=== PATIENT | male | born 1950 | race Caucasian/White ===

== ENCOUNTER 2021-08-20 09:47 | Day surgery (SDC) | payer BC, MEDICARE ==
[2021-08-14 16:07] VITALS: BMI 32.3
[~2021-08-20 09:47] MED LIST: LACTATED RINGERS 1,000 ML IV SCH
[2021-08-20 10:13] VITALS: TEMP 97
[2021-08-20] MEDS ORDERED: ROPIVACAINE 5 MG/ML 20 ML AMPULE ONE (11:00)
[2021-08-20] MEDS ORDERED: methylPREDNISolone ACETATE 40 MG/ML 1 ML VIAL ONE (11:00)
[2021-08-20] MEDS ORDERED: MIDAZOLAM 2 MG/2 ML VIAL ONE (11:00)
[2021-08-20] MEDS ORDERED: LIDOCAINE 2% INJ 20 MG/ML (2 ML VIAL) ONE (11:00)
[2021-08-20] MEDS ORDERED: fentaNYL (PF) 50 MCG/ML 2 ML AMP ONE (11:00)
--- NOTE | 2021-08-20 11:14 | P.PCN ---
Date of Procedure: 08/20/21 Description of Procedure: PREOPERATIVE DIAGNOSIS: Sacroiliac joint dysfunction POSTOPERATIVE DIAGNOSIS: Sacroiliac joint dysfunction. PROCEDURES: 1. Left-sided Sacroiliac joint steroid injection #1 out of 2 2. Sacroiliac joint arthrogram. SURGEON: Sharlene Kruger ANESTHESIA: Local and IV sedation : Versed 2 mg, and fentanyl 100 g. EBL: None. Specimen removed: None Fluoroscopic image: saved to electronic medical records. PROCEDURE INDICATIONS: This patient with a history of chronic low back pain, and sacroiliac joint dysfunction. Patient tried conservative therapy. Came here for intervention management. PROCEDURE DESCRIPTION: The patient was seen and identified in the preoperative area. Risks, benefits, complications, and alternatives were discussed with the patient. The patient agreed to proceed with the procedure and signed the consent. IV was started, and vital signs were stable. Patient was taken to the OR and time out was completed. The patient was placed in the prone position on procedure table and a pillow was placed under the abdomen to reduce lumbar lordosis. The lumbosacral area was prepped and draped in the usual sterile fashion. Critical pause was taken. Vital signs were closely monitored during the procedure. For the left side, the fluoroscopic camera was placed in right oblique view and left SI joint lower pole was identified. Skin entry point was infiltrated with 1% lidocaine and 22-gauge 3.5 inch spinal needle was introduced into the inferior one-third of SI joint and after penetrating into the joint arthrogram was done. IV contrast was not injected secondary to iodine ALLERGY.. Then again after negative aspiration of spinal fluid and blood and negative for neurological symptoms, 3 mL of a solution containing total 2.5 mL of 0.5% preservative-free ropivacaine mixed with 40 mg of Depo-Medrol was injected. Needle was withdrawn intact. Skin was cleansed, and bandages were applied. COMPLICATIONS: None. DISPOSITION / PLANS: The patient was placed in a supine position and transferred to the recovery area in a stable condition for observation and was discharged from the recovery room after meeting discharge criteria. Home discharge instructions given to the patient by the staff. The patient was reexamined prior to discharge. The patient will schedule for follow-up visit with the pain clinic in 4 weeks duration.
[2021-08-20] MEDS ORDERED: IV FLUID CONTINUATION 700 ML IV ONE (11:19)
[2021-08-20] MEDS ORDERED: LACTATED RINGERS 700 ML IV ONE (11:19)
[2021-08-20 11:21] VITALS: RESP 18
[2021-08-20 11:36] VITALS: BP 156/85; PULSE 70
--- NOTE | 2021-08-20 12:57 | FL ---
Fluoroscopy HISTORY: Pain 3 seconds fluoroscopy time supplied to the referring clinician. 1 intraoperative C-arm images docume nt the procedure. See dictated report from anesthesia.
== END 2021-08-20 12:04 | disposition home or self-care (01) ==
LOC: ORPAIN 09:47
DX: M53.3 Sacrococcygeal disorders, not elsewhere classified (principal); G89.29 Other chronic pain; M54.50 Low back pain, unspecified; I42.9 Cardiomyopathy, unspecified; I10 Essential (primary) hypertension; E78.00 Pure hypercholesterolemia, unspecified; Z95.810 Presence of automatic (implantable) cardiac defibrillator; Z96.653 Presence of artificial knee joint, bilateral; Z88.3 Allergy status to other anti-infective agents; Z88.1 Allergy status to other antibiotic agents
CPT/HCPCS: 27096; J2250; J1030; J2001 ×2; J3010; J2795; 99152

== ENCOUNTER → 2021-09-17 | Outpatient (CLI) | payer BC, MEDICARE ==
[2021-09-17 09:59] VITALS: BP 124/73; PULSE 70; RESP 16
--- NOTE | 2021-09-18 13:28 | P.PN ---
Subjective Progress Note Date: 09/17/21 This 71 years old female with a chronic history of severe low back pain, with radiation to the buttock area patient had lumbar decompression and fusion surgery several years ago, and continue to have severe pain, pain is constant interfere with any activity, interfer with the quality of life. Pain is prov oked with weightbearing activities for periods of 5 minutes or more. Pain is relieved with medications (ibuprofen, [place] rarely), injections in the past, repositioning, physical therapy for 6 weeks in 2019, chiropractic treatment in the past, or cryotherapy from , home stretching regimen and laying supine Physical Examinations : -Constitutiona : Cooperative , not in acute distress . -HEENT : nech : supple , no Lymphadenopathy , normal thyroid size . : eyes : no ptosis , no icterus, no photophobia . - neurologic : Cranial nerve II to XII intact , no focal neurological deffecit . -psychatric : alert , oriented X 3 , appropriate affect , intact judgment and insight . -Lymphatic : no Lymphadenopathy . - musculoskeltal : Lumber spine moter stegnth lower extremities ,thigh and legs 5/5 Right side , 5/5 Left side deep tendon reflexes : normal Knee Jerk , normal ankle Jerk lumber facet Loading Test =positive Right , positive Left Range of motion of the lumbar spine Flexion 30 degrees, extension 10 degrees strait leg raising test = positive at 30 degree Fabere test= positive Right , and positive LT . Sever tenderness over the Sacroiliac joint on the Left side. Gaenslen test= positive left . Seated flexion test= positive Left . Distraction test= positive left side Sacroiliac compression test= positive left Imaging: CT Myelogram of the Lumbar spine from [facility] requested. Assessment/ Plan : failed Back surgery syndrome and lumbar area. Left sacroiliitis. she could benefit from left sacroiliac joint steroid injection Objective - Vital Signs Vital signs: Vital Signs Temp Pulse 70 09/17/21 09:54 Resp 16 09/17/21 09:54 BP 124/73 09/17/21 09:54 Pulse Ox 98 09/17/21 09:54 FiO2 Intake & Output 09/16/21 09/17/21 09/17/21 18:59 06:59 18:59 Weight 90.718 kg
== END ==
LOC: PNWHC3 09:33
PROVIDERS: ATTEND Specialist
DX: M51.36 Other intervertebral disc degeneration, lumbar region (principal); M47.816 Spondylosis without myelopathy or radiculopathy, lumbar region; M79.18 Myalgia, other site; G89.29 Other chronic pain; Z91.041 Radiographic dye allergy status; Z88.1 Allergy status to other antibiotic agents; Z88.8 Allergy status to other drugs, medicaments and biological substances
CPT/HCPCS: 99211

== ENCOUNTER → 2021-11-17 | Day surgery (SDC) | payer BC, MEDICARE ==
[~2021-11-17] MED LIST changes: +IV FLUID CONTINUATION 1,000 ML IV ONE; +MIDAZOLAM 2 MG/2 ML VIAL ONE; +ROPIVACAINE 5 MG/ML 20 ML AMPULE ONE; +fentaNYL (PF) 50 MCG/ML 2 ML AMP ONE; +methylPREDNISolone ACETATE 40 MG/ML 1 ML VIAL ONE
[2021-11-17 09:52] VITALS: TEMP 96
--- NOTE | 2021-11-17 10:12 | P.PCN ---
Date of Procedure: 11/17/21 Procedure(s) Performed: Procedure= Left sacroiliac joints steroid injection under fluoroscopy guidance (fluoroscopy image stored on file in the radiology Department ) Preoperative diagnosis= 1-left sacroiliitis 2-left sacroiliac joint dysfunction Postoperative diagnosis=Same as preop Diagnosis . Complication = none Condition= stable Anesthesia= moderate sedation with intravenous Versed 2 mg , and fentanyl 100 micrograms . Sedation start time: 1002 Sedation end time : 1008 Indication for the procedure= patient complaining of low back pain , examination was positive for severe tenderness over the left sacroiliac joints , and patient diagnosed with sacroiliitis, for this reason she was good candidate for sacroiliac joint steroid injection. Description of the procedure= procedure risk and benefits discussed with the patient, including but not limited, risk of infection and bleeding, and ALLERGIC reaction to the medication and not complete pain relief and patient agreed with the preceding patient taken to the operating room, placed in prone position or standard monitors applied to the patient then after induction of anesthesia back prepped with chlorhexidine 3 times , Then the left sacroiliac joint steroid injection done under strict sterile technique local infiltration of the skin and subcu interstitial at the location of the left sacroiliac joint then a 22-gauge [place]ke Needle advanced slowly under fluoroscopy time placed in the left sacroiliac joint, needle placement confirmed with AP and oblique and lateral view then after appropriate needle placement confirmed and after negative aspiration 0.5% Ropivacaine 4 mL and 40 mg of Depo-Medrol injected in the left sacroiliac joint after negative aspiration patient tolerated the procedure well that any complications and she will follow up in clinic 3 weeks
--- NOTE | 2021-11-17 10:19 | FL ---
EXAMINATION TYPE: FL guided pain mgmt statistic DATE OF EXAM: 11/17/2021 HISTORY: Fluoroscopy time 3 seconds of fluoroscopy provided. IMPRESSION: 1. Fluoroscopy time.
[2021-11-17 10:36] VITALS: BP 165/87; PULSE 68; RESP 16
== END ==
LOC: ORPAIN 09:32
PROVIDERS: ATTEND Specialist
DX: M46.1 Sacroiliitis, not elsewhere classified (principal); Z88.9 Allergy status to unspecified drugs, medicaments and biological substances
CPT/HCPCS: 27096; J2250; J1030; J3010; J2795

== ENCOUNTER → 2021-12-07 | Outpatient (CLI) | payer BC, MEDICARE ==
[2021-12-07 10:13] VITALS: BP 170/87; PULSE 70; RESP 18; TEMP 97.6
--- NOTE | 2021-12-07 14:52 | P.PAINPG ---
PQRS Measure Charge Sheet Comment: A 71 yr old female with a history of severe and chronic low back pain secondary to lumbar degenerative disc diseases and lumbar spondylosis with facet arthropathy without myelopathy presents today for evaluation s/p L SI injection. Pt states she experienced 25% pain relief x 3 wks s/p procedure. Pain level is currently at 6/10 in intensity, intermittent, localized in the L lower lumbar spine, stabbing in character w shooting towards the L glute. Pain is provoked by standing for operiods of 20 min or more where pain goes in central lumbar spine. Pain is alleviated with PT x 4 wks in 2019, medications, topicals, heat, ice, repositioning and rest. Interventional pain procedures completed include L SI injection Patient is currently on Celebrex Patient denies any side effects of the medication(s), denies excessive drowsiness or sleepiness, denies suicidal ideation and reports that the current pain medication is helping to control the pain and improve activities of daily living. Patient denies any motor or sensory deficits. Patient denies any fever or night sweats, denies any change in the bowel movements or urination. Physical Examination: -Constitutional: Cooperative. Not in acute distress . - Neurologic: Cranial nerve II to XII intact. No focal neurological deficits. - Psychatric: Alert & oriented x 3. Matching mood & appropriate affect. Judgment and insight intact. - Musculoskeletal: Cervical spine: Muscle bulk/ tone/ strength in the bilateral upper extremities normal Vertebral body tenderness to palpation over Spurling test positive Distraction test positive Facet loading test positive Thoracic spine Muscle bulk / tone/ strength in the bilateral paraspinal muscles normal Vertebral body tender to palpation over Facet loading test positive Lumbar spine: Motor bulk/ tone/ strength lower extremities , thigh and legs : 5/5 Deep tendon reflexes : Normal Knee Jerk. Normal Ankle Jerk . Vertebral body tenderness to palpation over Lumbar Facet Loading Test positive Straight Leg Raise: positive at 30 degrees right side/ left side Gaenslen's Test positive Sacral spine : Severe tenderness over the Sacroiliac joint: right side / left side Range of motion: Flexion of the lumbar spine <60 degrees Range of motion: Extension of the lumbar spine <20 degrees Gaenslen's Test positive Jv's Test positive Max test: positive right side / left side Thigh Thrust Test L Sacral Thrust Test Assessment and plan: Chronic low back pain secondary to lumbar degenerative disc disease , lumbar spondylosis with facet arthropathy without myelopathy Recommendation of Celebrex 200mg QD #30 w 1 RF. Use, side effects and adverse reactions, discussed and pt verbalized understanding. All patient questions answered I have spent less than 30 minutes on patient care today. Dr Luz was available by phone for the evaluation of this patient. The time was used to review the medical records including relevant urine studies and Prescription history (MAPs), review of the available imaging, evaluation and examination of the patient, coordination of care with the medical staff and if applicable referring physicians, as well as creation of the medical record PQRS Narrative: Hx Alcohol Use (MH) No Home Medications: Ambulatory Orders Acetaminophen [Tylenol Extra Strength] 1,000 mg PO DIRECTED PRN 08/14/21 Cholecalciferol [Vitamin D3 (25 Mcg = 1000 Iu)] 50 mcg PO DAILY 08/14/21 Citalopram Hydrobromide [Citalopram HBr] 20 mg PO DAILY 08/14/21 Clopidogrel [Plavix] 75 mg PO DAILY 08/14/21 Cyanocobalamin (Vitamin B-12) [Vitamin B-12] 1,000 mcg PO DAILY 08/14/21 Famotidine [Pepcid] 20 mg PO HS 08/14/21 Ferrous Sulfate [Feosol] 325 mg PO DAILY 08/14/21 Fish Oil/Dha/Epa [Fish Oil 1,200 mg Fish Oil] 1 each PO DAILY 08/14/21 Fluticasone Nasal [place] [Flonase Nasal [place]] 1 spray EA NOSTRIL DAILY PRN 08/14/21 Metoprolol Succinate (ER) [Toprol Xl] 50 mg PO DAILY 08/14/21 Metoprolol Succinate (ER) [Toprol Xl] 100 mg PO DAILY 08/14/21 Montelukast Sodium [Singulair] 10 mg PO DAILY 08/14/21 Omeprazole 20 mg PO DAILY 08/14/21 Oxybutynin Chloride [Ditropan XL] 10 mg PO HS 08/14/21 Rosuvastatin [Crestor] 20 mg PO HS 08/14/21 Valsartan 80 mg PO HS 08/14/21 Valsartan 160 mg PO HS 08/14/21 Celecoxib [CeleBREX] 200 mg PO DAILY 30 Days #30 cap 12/07/21 Controlled Substance Measures - Controlled Substance Measures Is patient prescribed a controlled substance at discharge?: No
== END ==
LOC: PNWHC3 09:06
PROVIDERS: ATTEND Specialist
DX: M47.816 Spondylosis without myelopathy or radiculopathy, lumbar region (principal); M51.36 Other intervertebral disc degeneration, lumbar region; G89.29 Other chronic pain; Z91.041 Radiographic dye allergy status; Z88.1 Allergy status to other antibiotic agents
CPT/HCPCS: 99211

== ENCOUNTER → 2022-02-11 | Outpatient (CLI) | payer BC, MEDICARE ==
[2022-02-11 12:11] VITALS: BP 156/73; PULSE 90; RESP 16; TEMP 97.9
--- NOTE | 2022-02-11 14:52 | P.PAINPG ---
Subjective Progress Note Date: 02/11/22 Principal diagnosis: Lumbar back pain, and leg pain Ms. Joy is a 71-year-old pleasant female came to the [facility] pain clinic for follow-up visit. Patient has ongoing pain for many years. She tried multiple intervention procedures with minimal pain relief. Patient describes pain is aching, throbbing, constant type of pain. Pain is radiating to lower extremity sometimes causing numbness and tingling sensation.. Patient rated pain levels are 8 out of 10 in severity. With the help of medications pain levels are 6-10 out of 10 in severity. Activities making pain worse. Medications, resting helping in relieving patient's pain. Patient pain some days better than others. Overall activities decreased secondary to pain. Because of the pain sometimes patient is feeling lack of sleep, interest, and energy. Denied any side effects with the medications. Denied any bowel or bladder problems at this time. Patient is not using any aids for walking support. Patient denies any suicidal or homicidal ideations intent or plan. P atient denies any auditory or visual hallucinations. Patient denied any red flag symptoms related to pain. Patient had [employer] pacemaker (2007). Objective - Vital Signs Vital signs: Intake & Output 02/10/22 02/11/22 02/11/22 18:59 06:59 18:59 Weight 94.347 kg - Exam General: Well-developed, well-nourished, no acute distress HEENT: Normocephalic, and atraumatic Neck: Supple, no neck swelling Psychiatric: Appropriate mood, and affect [employer] ASSISTANT: No focal neurological deficits Musculoskeletal: Upper extremity: Normal strength, and range of motion. Sensation grossly intact Lower extremity: Normal strength, and decreased range of motion secondary to pain. Lumbar spine: Healed lumbar scar positive. Paravertebral tenderness: positive Lumbar facet load test : positive Sacroiliac joint tenderness: Positive Thigh thrust test: Positive SI joint compression test: Positive Fabere test: Positive [place] leg raising test positive. Assessment and Plan Assessment: Lumbar postlaminectomy syndrome Lumbar spondylosis without myelopathy Lumbar radiculopathy Sacroiliac joint dysfunction Myofascial pain syndrome, and chronic pain syndrome [employer] / [employer] pacemaker Plan: #1 Diagnoses, prognosis, and multiple treatment options including but not limited to physical therapy, interventional therapy, adjunct medication therapy, narcotic medication, and surgical options were discussed with the patient. And all questions were answered to the patient's satisfaction. #2 treatment plan agreement : Patient was thoroughly discussed regarding the treatment options, alternatives, and importance of exercises as tolerated. Patient clearly understood. #3 Patient was counseled on importance of regular exercise. Including [place] chi, aerobic exercises as tolerated. Which helps for chronic pain, and overall well- being. #4 investigations: MAPS- reviewed , urine drug test- none #5 diagnostic tests: None #6 consultation : Psychologist evaluation- if she planned to go for spinal cord stimulator trial in future, Thoracic spine MRI without contrast before going for spinal cord stem later to rule out stenosis. # 7 interventional procedures: Discussed with patient regarding spinal cord stimulation trial option . Procedure, complications, alternatives discussed with the patient. #8 medications #1 Celebrex 200 mg by mouth daily as needed, dispensed 30 with 5 refills #2 discontinue Motrin Medication side effects, complications, long-term consequences discussed with the patient. Patient recommended to contact the pain clinic if noticed any issues with given medications. #9 morphine milligrams equivalents dose ( MME) per day: 0 from the pain clinic #10 disposition: scheduled to follow up with pain clinic in 12 weeks duration. Time with Patient: Less than 30 PQRS Measure Charge Sheet Measure #130: Documentation of Current Meds in Medical Chart: Patient's medications documented in chart Measure #226: Tobacco Use: Screen & Cessation Intervention: Pt not a tobacco user Measure #111: Pneumonia Vaccination: Pneumococcal vaccine administered or previously received Measure #47: Advance Care Plan: Advance care planning discussed & documented, plan or surrogate given Measure #412: Opioid Treatment Agreement: No documentation of signed opioid treatment agreement Measure #408: Opioid Therapy Follow-up Evaluation: Patient had NO f/u eval minimum every 3 months during opioid therapy Measure #317: Preventitive Care & Scrn High Bld Press & F/U: Pre-hypertensive or hypertensive BP documented, pt will f/u with PCP Measure #128: Body Mass Index (BMI) Screening & Follow-up: BMI documented ABOVE normal parameters - f/u documented Measure #131: Pain Assessment & Follow-up: Pain positive & plan documented Measure #431: Unhealthy Alcohol Use Preventative Care & Scrn: Patient not identified as an unhealthy alcohol user - Pain Location Left Lower Back Non-Pharmacological Interventions: Heat, Ice, Inactivity, Physical Therapy, Relaxation Technique Pharmacological Interventions: Block, Epidural, PRN Medication, Topical Medication PQRS Narrative: Hx Alcohol Use (MH) No Home Medications: Ambulatory Orders Acetaminophen [Tylenol Extra Strength] 1,000 mg PO DIRECTED PRN 08/14/21 Cholecalciferol [Vitamin D3 (25 Mcg = 1000 Iu)] 50 mcg PO DAILY 08/14/21 Citalopram Hydrobromide [Citalopram HBr] 20 mg PO DAILY 08/14/21 Clopidogrel [Plavix] 75 mg PO DAILY 08/14/21 Cyanocobalamin (Vitamin B-12) [Vitamin B-12] 1,000 mcg PO DAILY 08/14/21 Famotidine [Pepcid] 20 mg PO HS 08/14/21 Ferrous Sulfate [Feosol] 325 mg PO DAILY 08/14/21 Fish Oil/Dha/Epa [Fish Oil 1,200 mg Fish Oil] 1 each PO DAILY 08/14/21 Fluticasone Nasal [place] [Flonase Nasal [place]] 1 spray EA NOSTRIL DAILY PRN 08/14/21 Metoprolol Succinate (ER) [Toprol Xl] 50 mg PO DAILY 08/14/21 Metoprolol Succinate (ER) [Toprol Xl] 100 mg PO DAILY 08/14/21 Montelukast Sodium [Singulair] 10 mg PO DAILY 08/14/21 Omeprazole 20 mg PO DAILY 08/14/21 Oxybutynin Chloride [Ditropan XL] 10 mg PO HS 08/14/21 Rosuvastatin [Crestor] 20 mg PO HS 08/14/21 Valsartan 80 mg PO HS 08/14/21 Valsartan 160 mg PO HS 08/14/21 Celecoxib [CeleBREX] 200 mg PO DAILY 30 Days #30 cap 12/07/21 Controlled Substance Measures - Controlled Substance Measures Is patient prescribed a controlled substance at discharge?: No
== END ==
LOC: PNWHC3 10:00
DX: M47.26 Other spondylosis with radiculopathy, lumbar region (principal); M96.1 Postlaminectomy syndrome, not elsewhere classified; M46.1 Sacroiliitis, not elsewhere classified; M79.10 Myalgia, unspecified site; G89.4 Chronic pain syndrome; Z95.810 Presence of automatic (implantable) cardiac defibrillator; Z91.041 Radiographic dye allergy status; Z88.1 Allergy status to other antibiotic agents
CPT/HCPCS: 99211

== ENCOUNTER → 2022-05-06 | Outpatient (CLI) | payer BC, MEDICARE ==
[2022-05-06 12:03] VITALS: BP 166/94; PULSE 70; RESP 18; TEMP 98.1
--- NOTE | 2022-05-06 13:03 | P.PAINPG ---
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 Pain level is provoked at 5 /10 in intensity, constant, localized in the lumbar spine, dull in character w shooting towards the RLE. Pain is provoked by sitting for periods of 15 min or more. Pain is alleviated with medications, PT integrated w massage x 4 wks in Apr 2022, home stretching regimen, heat, ice, repositioning and rest. Discussed risks, benefits of SCS placement and trial w pt but is disinterested at this time. Interventional pain procedures completed include L SI Patient is currently on Celebrex 200mg, Jeff Patient denies any side effects of the medication(s), denies excessive drowsiness or sleepiness, denies suicidal ideation and reports that the current pain medication is helping to control the pain and improve activities of daily living. Patient denies any motor or sensory deficits. Patient denies any fever or night sweats, denies any change in the bowel movements or urination. Physical Examination: -Constitutional: Cooperative. Not in acute distress . - Neurologic: Cranial nerve II to XII intact. No focal neurological deficits. - Psychatric: Alert & oriented x 3. Matching mood & appropriate affect. Judgment and insight intact. - Musculoskeletal: Cervical spine: Muscle bulk/ tone/ strength in the bilateral upper extremities normal Vertebral body tenderness to palpation over Spurling test positive Distraction test positive Facet loading test positive TTP Thoracic spine Muscle bulk / tone/ strength in the bilateral paraspinal muscles normal Vertebral body tender to palpation over Facet loading test positive TTP Lumbar spine: Motor bulk/ tone/ strength lower extremities , thigh and legs : 5/5 Deep tendon reflexes : Normal Knee Jerk. Normal Ankle Jerk . Vertebral body tenderness to palpation over Lumbar Facet Loading Test positive Straight Leg Raise: positive at 30 degrees right side/ left side Gaenslen's Test positive Sacral spine : Severe tenderness over the Sacroiliac joint: right side / left side Range of motion: Flexion of the lumbar spine <60 degrees Range of motion: Extension of the lumbar spine <20 degrees Gaenslen's Test positive right side / left side Max test: positive right side / left side Thigh Thrust Test positive right side / left side Sacral Thrust Test positive right side / left side Assessment and plan: Chronic LBP secondary to post laminectomy syndrome All patient questions answered MAPS reviewed and it was appropriate. Prescription refill for Celebrex 200mg w 1 RF I have spent less than 30 minutes on patient care today. Dr Luz was available by phone for the evaluation of this patient. The time was used to review the medical records including relevant urine studies and Prescription history (MAPs), review of the available imaging, evaluation and examination of the patient, coordination of care with the medical staff and if applicable referring physicians, as well as creation of the medical record PQRS Narrative: Hx Alcohol Use (MH) No Home Medications: Ambulatory Orders Acetaminophen [Tylenol Extra Strength] 1,000 mg PO DIRECTED PRN 08/14/21 Cholecalciferol [Vitamin D3 (25 Mcg = 1000 Iu)] 50 mcg PO DAILY 08/14/21 Citalopram Hydrobromide [Citalopram HBr] 20 mg PO DAILY 08/14/21 Clopidogrel [Plavix] 75 mg PO DAILY 08/14/21 Cyanocobalamin (Vitamin B-12) [Vitamin B-12] 1,000 mcg PO DAILY 08/14/21 Famotidine [Pepcid] 20 mg PO HS 08/14/21 Ferrous Sulfate [Feosol] 325 mg PO DAILY 08/14/21 Fish Oil/Dha/Epa [Fish Oil 1,200 mg Fish Oil] 1 each PO DAILY 08/14/21 Fluticasone Nasal [place] [Flonase Nasal [place]] 1 spray EA NOSTRIL DAILY PRN 08/14/21 Metoprolol Succinate (ER) [Toprol Xl] 50 mg PO DAILY 08/14/21 Metoprolol Succinate (ER) [Toprol Xl] 100 mg PO DAILY 08/14/21 Montelukast Sodium [Singulair] 10 mg PO DAILY 08/14/21 Omeprazole 20 mg PO DAILY 08/14/21 Oxybutynin Chloride [Ditropan XL] 10 mg PO HS 08/14/21 Rosuvastatin [Crestor] 20 mg PO HS 08/14/21 Valsartan 80 mg PO HS 08/14/21 Valsartan 160 mg PO HS 08/14/21 Celecoxib [CeleBREX] 200 mg PO DAILY 30 Days #30 cap 12/07/21 Controlled Substance Measures - Controlled Substance Measures Is patient prescribed a controlled substance at discharge?: No
== END ==
LOC: PNWHC3 10:38
PROVIDERS: ATTEND Specialist
DX: M96.1 Postlaminectomy syndrome, not elsewhere classified (principal); G89.29 Other chronic pain; Z91.041 Radiographic dye allergy status; Z88.1 Allergy status to other antibiotic agents
CPT/HCPCS: 99211

== ENCOUNTER → 2022-07-01 | Outpatient (CLI) | payer BC, MEDICARE ==
[2022-07-01 12:34] VITALS: BP 159/88; PULSE 71; RESP 18; TEMP 97.4
--- NOTE | 2022-07-01 12:41 | P.PAINPG ---
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 Pain level is provoked at 5 /10 in intensity, constant, localized in the lumbar spine, tight in character w shooting towards the L hip and L thigh. Pain is provoked by si tting for periods of 15 min or more. Pain is alleviated with medications, PT integrated w massage x 4 wks in Apr 2022, home stretching regimen, heat, ice, repositioning and rest. Pt is sitting veered towards R in efforts to alleviate L sided back pain. Interventional pain procedures completed include L SI x2 Patient is currently on Celebrex 200mg, [place], Tyl ES Patient denies any side effects of the medication(s), denies excessive drowsiness or sleepiness, denies suicidal ideation and reports that the current pain medication is helping to control the pain and improve activities of daily living. Patient denies any motor or sensory deficits. Patient denies any fever or night sweats, denies any change in the bowel movements or urination. Physical Examination: -Constitutional: Cooperative. Not in acute distress . - Neurologic: Cranial nerve II to XII intact. No focal neurological deficits. - Psychatric: Alert & oriented x 3. Matching mood & appropriate affect. Judgment and insight intact. - Musculoskeletal: Cervical spine: Muscle bulk/ tone/ strength in the bilateral upper extremities normal Vertebral body tenderness to palpation over [place] test positive Distraction test positive Facet loading test positive TTP Thoracic spine Muscle bulk / tone/ strength in the bilateral paraspinal muscles normal Vertebral body tender to palpation over Facet loading test positive TTP Lumbar spine: Motor bulk/ tone/ strength lower extremities , thigh and legs : 5/5 Deep tendon reflexes : Normal Knee Jerk. Normal Ankle Jerk . Vertebral body tenderness to palpation over Lumbar Facet Loading Test positive over L L3-L4, L4-L5, L5-S1 Straight Leg Raise: positive at 30 degrees right side/ left side Gaenslen's Test positive Sacral spine : Severe tenderness over the Sacroiliac joint: right side / left side Range of motion: Flexion of the lumbar spine <60 degrees Range of motion: Extension of the lumbar spine <20 degrees Gaenslen's Test positive right side / left side Max test: positive right side / left side Thigh Thrust Test positive right side / left side Sacral Thrust Test positive right side / left side Assessment and plan: Chronic LBP secondary to post laminectomy syndrome All patient questions answered. Pt is disinterested in a spinal cord implant for pain relief at this time. MAPS reviewed and it was appropriate. Follow up w Dr Mercedes for additional treatment options. Prescription refill for Celebrex 200mg w 1 RF I have spent less than 30 minutes on patient care today. Dr Luz was available by phone for the evaluation of this patient. The time was used to review the medical records including relevant urine studies and Prescription history (MAPs), review of the available imaging, evaluation and examination of the patient, coordination of care with the medical staff and if applicable referring physicians, as well as creation of the medical record PQRS Narrative: Hx Alcohol Use (MH) No Home Medications: Ambulatory Orders Acetaminophen [Tylenol Extra Strength] 1,000 mg PO DIRECTED PRN 08/14/21 Cholecalciferol [Vitamin D3 (25 Mcg = 1000 Iu)] 50 mcg PO DAILY 08/14/21 Citalopram Hydrobromide [Citalopram HBr] 20 mg PO DAILY 08/14/21 Clopidogrel [Plavix] 75 mg PO DAILY 08/14/21 Cyanocobalamin (Vitamin B-12) [Vitamin B-12] 1,000 mcg PO DAILY 08/14/21 Famotidine [Pepcid] 20 mg PO HS 08/14/21 Ferrous Sulfate [Feosol] 325 mg PO DAILY 08/14/21 Fish Oil/Dha/Epa [Fish Oil 1,200 mg Fish Oil] 1 each PO DAILY 08/14/21 Fluticasone Nasal [place] [Flonase Nasal [place]] 1 spray EA NOSTRIL DAILY PRN 08/14/21 Metoprolol Succinate (ER) [Toprol Xl] 50 mg PO DAILY 08/14/21 Metoprolol Succinate (ER) [Toprol Xl] 100 mg PO DAILY 08/14/21 Montelukast Sodium [Singulair] 10 mg PO DAILY 08/14/21 Omeprazole 20 mg PO DAILY 08/14/21 Rosuvastatin [Crestor] 20 mg PO HS 08/14/21 Valsartan 80 mg PO HS 08/14/21 Valsartan 160 mg PO HS 08/14/21 oxyBUTYnin chloride [Ditropan XL] 10 mg PO HS 08/14/21 Celecoxib [CeleBREX] 200 mg PO DAILY 30 Days #30 cap 07/01/22 Controlled Substance Measures - Controlled Substance Measures Is patient prescribed a controlled substance at discharge?: No
== END ==
LOC: PNWHC3 10:24
PROVIDERS: ATTEND Specialist
DX: M54.50 Low back pain, unspecified (principal); M96.1 Postlaminectomy syndrome, not elsewhere classified; G89.29 Other chronic pain; Z91.041 Radiographic dye allergy status; Z88.8 Allergy status to other drugs, medicaments and biological substances
CPT/HCPCS: 99211